=== PATIENT | female | born 1985 | race Caucasian/White ===

== ENCOUNTER → 2019-06-13 14:04 | Outpatient (BNVA) | payer OTHER, SELFPAY | PROVIDERS: PCP Family Medicine; Visit Provider Nurse Practitioner Family | DX: M25.572 Pain in left ankle and joints of left foot (principal) | CPT/HCPCS: 73610; 73630 ==

== ENCOUNTER → 2019-12-03 17:19 | Outpatient (BNVA) | payer OTHER, SELFPAY | PROVIDERS: PCP Family Medicine; Visit Provider Nurse Practitioner Family | DX: R05 Cough (principal) | CPT/HCPCS: 87635 ==

== ENCOUNTER 2019-12-07 02:27 | Emergency (ER) | payer OTHER, SELFPAY ==
[2019-12-07 02:42] VITALS: BP 147/91; PULSE 92; RESP 20; TEMP 37.7; O2SAT 94
--- NOTE | 2019-12-07 04:03 | XRR_ITS ---
PROCEDURE INFORMATION: Exam: XR Chest, 1 View Exam date and time: 12/07/2019 4:16 AM Age: 34 years old Clinical indication: Fever TECHNIQUE: Imaging protocol: XR of the chest Views: 1 view. COMPARISON: No relevant prior studies available. FINDINGS: Lungs: Airspace disease predominantly laterally in the right lung base not silhouetting the hemidiaphragm. Probable slightly patchy increased density in the medial aspect of the right posterior sulcus behind the liver, also. Left lung clear. Pleural space: No pleural fluid or pneumothorax. Heart/Mediastinum: Unremarkable. No cardiomegaly. Bones/joints: Unremarkable. XR/XR chest 1V portable [id number] IMPRESSION: Right basilar pneumonia.
--- NOTE | 2019-12-07 04:03 | CTR_ITS ---
PROCEDURE INFORMATION: Exam: CT Head Without Contrast Exam date and time: 12/07/2019 4:16 AM Age: 34 years old Clinical indication: Pain; Headache not specified TECHNIQUE: Imaging protocol: Computed tomography of the head without contrast. Radiation optimization: All CT scans at this facility use at least one of these dose optimization techniques: automated exposure control; mA and/or kV adjustment per patient size (includes targeted exams where dose is matched to clinical indication); or iterative reconstruction. COMPARISON: No relevant prior studies available. RADIATION DOSE METRICS: Total DLP (mGy-cm): 726.54 FINDINGS: Brain: Normal. No hemorrhage. Unremarkable white matter. No mass effect. Ventricles: Normal. No ventriculomegaly. Bones/joints: Unremarkable. No acute fracture. Sinuses: Visualized sinuses are unremarkable. No fluid levels. Mastoid air cells: Visualized mastoid air cells are well aerated. Soft tissues: Unremarkable. CT/CT head wo con* [id number] IMPRESSION: No acute intracranial abnormality. Radiation Dose CTDIVOL = (mGy): DLP = 726.54 (mGy-cm)
--- NOTE | 2019-12-07 04:09 | W.ED.HA ---
Documented by User: Lila Rebollar 12/07/19 04:57 HPI - Headache General: Chief Complaint: Headache Stated Complaint: FEVERF/HEADACHE Time Seen by Provider: 12/07/19 03:55 Source: patient Mode of arrival: ambulatory Limitations: no limitations History of Present Illness: HPI Narrative: Elizabeth is a 34-year-old female who comes in complaining of head pressure and fever intermittently for the past 5 days. She denies any neck pain or stiffness. Fevers been up to 102.7. She has had one episode of vomiting several days ago. She denies any rashes. She denies any photophobia or phonophobia. Denies any abdominal pain, cough, urinary symptoms or otherwise. She states her fever and pain respond to Tylenol Motrin but once they were off her symptoms returned. She not had any known ill contacts according to her. Associated symptoms: Reports fever(s); Deny chest pain, confusion, diaphoresis, lightheadedness, malaise, nausea, pre-syncope, rash, syncope or vomiting Review of Systems Const: Reports: fever(s); Denies: chills, body aches, fatigue, malaise or diaphoresis Eyes: Denies: change in vision, blurry vision, blind spots, photophobia, eye discharge or eye redness ENMT: Denies: throat pain, odynophagia, hoarseness, swelling of lips/tongue, oral sores, ear or mastoid pain, ear discharge, change in hearing or nasal discharge Card: Denies: chest pain, palpitations, irregular heart rhythm, edema, lightheadedness, syncope, pre-syncope, dyspnea on exertion or orthopnea Resp: Denies: dyspnea, productive cough, non-productive cough, wheezing, hemoptysis or chest congestion GI: Denies: abdominal pain, nausea, vomiting, hematemesis, coffee ground emesis, heartburn, diarrhea, constipation, GI cramping, hematochezia or melena : Denies: flank pain, dysuria, urinary frequency, urinary urgency or hematuria Musc: Denies: neck pain, back pain, extremity pain, extremity swelling, joint pain, joint swelling, joint redness, joint warmth or joint stiffness Skin/Breast: Denies: rash, pruritus, erythema, skin tenderness or jaundice Neuro: Reports: headache(s); Denies: numbness in extremities, weakness in extremities, sensory changes, lack of coordination, difficulty walking, dizziness, vertigo, confusion, Slurred speech present or seizure-like activity Jarrett/Lymph: Denies: easy bruising, easy bleeding, petechiae, purpura or enlarged lymph nodes All/Imm: Denies: urticaria, throat swelling, tongue swelling, facial swelling or acute wheezing PFSH ED PFSH: Family History Family/Other Cancer Lung and breast CAD (coronary artery disease) Diabetes Hypertension Stroke Social History Smoking and tobacco status: current every day smoker cigarettes Packs smoked per day: 0.5 Years cigarettes smoked: 15 Second hand smoke exposure: Yes Alcohol intake: never Lives independently: Yes Household members: spouse and children Marital status: service: No 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 Pets and animals: Yes History of recent travel: No Current gender identity: Female Female Reproductive History: Date of last menstrual period: 12/05/19 Physical Exam Const: COMMON NORMALS: no acute distress, patient oriented x3, no limitations, healthy appearing and well nourished GENERAL APPEARANCE: cooperative, well kempt and well developed HENMT: COMMON NORMALS: normocephalic, atraumatic, external ears normal, EAC's normal and Normal external nose present HEAD & SCALP: normal to inspection, normocephalic and atraumatic FACE & SINUS: normal facial exam and face symmetric NOSE: Normal external nose present and Normal nares present EXTERNAL EAR: Yes external ears normal EXTERNAL AUDITORY CANAL: EAC's normal MOUTH: Normal oral and palatal mucosa present, lip normal and tongue normal Eye: COMMON NORMALS: Equal, round and reactive pupils present and conjunctivae normal GENERAL EYE: appearance normal, both eyes and all related structures ALIGNMENT: Yes alignment normal PERIORBITAL: periorbital findings normal EYELID: eyelids normal CONJUNCTIVA: Yes conjunctivae normal SCLERA: sclerae normal PUPIL: Yes Equal, round and reactive pupils present Neck/C-Spine: COMMON NORMALS: full ROM, no lymphadenopathy, supple, no meningeal signs and no JVD GENERAL: Yes normal visual inspection and Yes trachea midline Chest: COMMONS NORMALS: normal inspection of the chest and normal palpation of entire chest wall Resp: COMMON NORMALS: normal respiratory effort, No retractions and No use of accessory muscles EFFORT & INSPECTION: Yes able to speak in complete sentences and Yes symmetric chest movement AUSCULTATION: no crackles, no rales, no rhonchi and no wheezes Cardio: COMMON NORMALS: no JVD, regular rate, regular rhythm, S1 normal heart sound present and S2 normal heart sound present RATE: regular rate RHYTHM: regular rhythm HEART SOUNDS: S1 normal heart sound present, S2 normal heart sound present, no click, no gallops, no murmurs, no rubs and abnormal split S2 GI: COMMON NORMALS: Soft to palpation and No hepatosplenomegaly present PALPATION: Yes Soft to palpation, No Tenderness to palpation present (GI), No Guarding due to palpation present (GI), No Rigid due to palpation, Yes No hepatosplenomegaly present, No Hernia present, No Palpable mass present and No Pulsatile mass present : COMMON NORMALS: Yes no CVA tenderness BLADDER/KIDNEY EXAM: Yes no CVA tenderness EXTERNAL FEMALE EXAM: No Hernia present Back/Pelvis: COMMON NORMALS: no CVA tenderness, thoracic and lumbar spine normal to inspection, no thoracic nor lumbar tenderness and thoraco-lumbar ROM normal Extremity: COMMON NORMALS: normal to inspection, full ROM, capillary refill normal, no joint enlargement, no clubbing, cyanosis or edema and no calf tenderness Neuro: COMMON NORMALS: patient oriented x3, CN's II-XII intact bilaterally, moves all extremities, no focal motor deficits and no sensory deficits noted MENINGEAL SIGNS: Yes no meningeal signs SPEECH: speech normal Psych: COMMON NORMALS: mental status grossly normal, Normal thought process present, cooperative, normal affect, speech normal and activity/motor behavior normal APPEARANCE: Yes well kempt SPEECH: Yes normal speech THOUGHT PROCESS: Normal thought process present Skin: COMMON NORMALS: no rashes or lesions noted, turgor normal, no jaundice, no petechiae and no mottling GENERAL SKIN EXAM: no rashes or lesions noted and turgor normal Course ED course: 0410 -risks and benefits were explained to the patient and she agrees to going ahead with LP to evaluate for meningitis. Vital Signs: Vital signs: Vital Signs Temperature 100.0 F H 12/07/19 08:53 Pulse Rate 101 H 12/07/19 08:53 Respiratory Rate 16 12/07/19 08:53 Blood Pressure 127/69 12/07/19 08:53 Pulse Oximetry 95 12/07/19 07:33 MDM - Headache Lab Data: Labs: Lab Results 12/07/19 12/07/19 12/07/19 Range/Units 04:57 04:57 04:57 WBC 12.4 H (4.0-10.0) 10^3/ uL RBC 4.22 (4.1-5.3) 10^6/u L Hgb 12.4 (11.5-15.3) g/dL Hct 38.9 (37.0-47.0) % MCV 92.2 (81-99) fL MCH 29.4 (28.0-34.0) pg MCHC 31.9 (30.0-36.0) g/dL RDW 13.1 (12.1-15.1) % Plt Count 281 (130-400) 10^3/c mm MPV 10.5 H (7.4-10.4) fL Neut % (Auto) 82.2 % Lymph % (Auto) 13.8 % [place] % (Auto) 3.2 % Eos % (Auto) 0.1 % Baso % (Auto) 0.3 % Neut # (Auto) 10.14 H (1.8-7.7) 10^3/u L Lymph # (Auto) 1.7 (0.8-4.8) 10^3/u L [place] # (Auto) 0.4 (0.2-0.9) 10^3/u L Eos # (Auto) 0.0 (0.0-0.8) 10^3/u L Baso # (Auto) 0.0 (0.0-0.1) 10^3/u L Nucleated RBC % (a uto) 0 % Nucleated RBCs # 0.0 /100WBC PT (10.5-13.3) SECO NDS INR (0.8-1.2) Sodium 134 L (136-145) mmol/L Potassium 3.3 L (3.5-5.1) mmol/L Chloride 95 L (98-107) mmol/L Carbon Dioxide 26 (22-29) mmol/L Anion Gap 16.3 (5-19) BUN 6 (6-20) mg/dL Creatinine 0.7 (0.5-0.9) mg/dL GFR Calculation 96.4 (90-130) mL/min Glucose 117 H (65-115) mg/dL Calculated Osmolal ity 275 L (285-295) mOsm/k g Lactic Acid (0.5-2.2) mmol/L Calcium 9.8 (8.5-10.5) mg/dL Magnesium 2.3 (1.7-2.3) mg/dL Total Bilirubin 0.4 (0.15-1.2) mg/dL AST 45 H (0-32) U/L ALT 38 H (0-33) U/L Alkaline Phosphata se 156 H (35-105) IU/L Total Protein 8.5 (6.6-8.7) g/dL Albumin 4.3 (3.5-5.2) g/dL Globulin 4.2 (1.3-4.6) g/dL HCG, Qual Negative (Negative) Urine Color (Yellow) Urine Appearance (CLEAR) Urine pH (5-7) Ur Specific Gravit y (1.005-1.030) Urine Protein (Negative) Urine Glucose (UA) (Normal) Urine Ketones (Negative) Urine Blood (Negative) Urine Nitrate (Negative) Urine Bilirubin (NEGATIVE) Urine Urobilinogen (Negative) mg/dL Ur Leukocyte Phylicia ase (Negative) Urine RBC (0-2) /hpf Urine WBC (0-5) /hpf Ur Squamous Epith Cells (0-5) Urine Bacteria (NONE) CSF Appearance (CLEAR) CSF Color (COLORLESS) CSF WBC (0-5) /uL CSF RBC (0-0) 10^3/uL CSF Mononuclear # Auto (50-90) 10^3/uL CSF Mononuclear WB Cs % (50-90) % CSF Polynuclear WB Cs # (0-10) 10^3/uL CSF Polynuclear WB Cs % (0-10) % CSF Glucose (40-70) mg/dL CSF Total Protein (15-45) mg/dL Influenza Type A A g (Negative) Influenza Type B A g (Negative) 12/07/19 12/07/19 12/07/19 Range/Units 05:01 05:11 05:35 WBC (4.0-10.0) 10^3/ uL RBC (4.1-5.3) 10^6/u L Hgb (11.5-15.3) g/dL Hct (37.0-47.0) % MCV (81-99) fL MCH (28.0-34.0) pg MCHC (30.0-36.0) g/dL RDW (12.1-15.1) % Plt Count (130-400) 10^3/c mm MPV (7.4-10.4) fL Neut % (Auto) % Lymph % (Auto) % [place] % (Auto) % Eos % (Auto) % Baso % (Auto) % Neut # (Auto) (1.8-7.7) 10^3/u L Lymph # (Auto) (0.8-4.8) 10^3/u L [place] # (Auto) (0.2-0.9) 10^3/u L Eos # (Auto) (0.0-0.8) 10^3/u L Baso # (Auto) (0.0-0.1) 10^3/u L Nucleated RBC % (a uto) % Nucleated RBCs # /100WBC PT 13.70 H (10.5-13.3) SECO NDS INR 1.02 (0.8-1.2) Sodium (136-145) mmol/L Potassium (3.5-5.1) mmol/L Chloride (98-107) mmol/L Carbon Dioxide (22-29) mmol/L Anion Gap (5-19) BUN (6-20) mg/dL Creatinine (0.5-0.9) mg/dL GFR Calculation (90-130) mL/min Glucose (65-115) mg/dL Calculated Osmolal ity (285-295) mOsm/k g Lactic Acid 0.9 (0.5-2.2) mmol/L Calcium (8.5-10.5) mg/dL Magnesium (1.7-2.3) mg/dL Total Bilirubin (0.15-1.2) mg/dL AST (0-32) U/L ALT (0-33) U/L Alkaline Phosphata se (35-105) IU/L Total Protein (6.6-8.7) g/dL Albumin (3.5-5.2) g/dL Globulin (1.3-4.6) g/dL HCG, Qual (Negative) Urine Color (Yellow) Urine Appearance (CLEAR) Urine pH (5-7) Ur Specific Gravit y (1.005-1.030) Urine Protein (Negative) Urine Glucose (UA) (Normal) Urine Ketones (Negative) Urine Blood (Negative) Urine Nitrate (Negative) Urine Bilirubin (NEGATIVE) Urine Urobilinogen (Negative) mg/dL Ur Leukocyte Phylicia ase (Negative) Urine RBC (0-2) /hpf Urine WBC (0-5) /hpf Ur Squamous Epith Cells (0-5) Urine Bacteria (NONE) CSF Appearance Clear (CLEAR) CSF Color Colorless (COLORLESS) CSF WBC 2 (0-5) /uL CSF RBC 0 (0-0) 10^3/uL CSF Mononuclear # Auto 0.002 L (50-90) 10^3/uL CSF Mononuclear WB Cs % 100 H (50-90) % CSF Polynuclear WB Cs # 0.000 (0-10) 10^3/uL CSF Polynuclear WB Cs % 0 (0-10) % CSF Glucose 76 H (40-70) mg/dL CSF Total Protein 24 (15-45) mg/dL Influenza Type A A g (Negative) Influenza Type B A g (Negative) 12/07/19 12/07/19 Range/Units 05:44 06:17 WBC (4.0-10.0) 10^3/ uL RBC (4.1-5.3) 10^6/u L Hgb (11.5-15.3) g/dL Hct (37.0-47.0) % MCV (81-99) fL MCH (28.0-34.0) pg MCHC (30.0-36.0) g/dL RDW (12.1-15.1) % Plt Count (130-400) 10^3/c mm MPV (7.4-10.4) fL Neut % (Auto) % Lymph % (Auto) % [place] % (Auto) % Eos % (Auto) % Baso % (Auto) % Neut # (Auto) (1.8-7.7) 10^3/u L Lymph # (Auto) (0.8-4.8) 10^3/u L [place] # (Auto) (0.2-0.9) 10^3/u L Eos # (Auto) (0.0-0.8) 10^3/u L Baso # (Auto) (0.0-0.1) 10^3/u L Nucleated RBC % (a uto) % Nucleated RBCs # /100WBC PT (10.5-13.3) SECO NDS INR (0.8-1.2) Sodium (136-145) mmol/L Potassium (3.5-5.1) mmol/L Chloride (98-107) mmol/L Carbon Dioxide (22-29) mmol/L Anion Gap (5-19) BUN (6-20) mg/dL Creatinine (0.5-0.9) mg/dL GFR Calculation (90-130) mL/min Glucose (65-115) mg/dL Calculated Osmolal ity (285-295) mOsm/k g Lactic Acid (0.5-2.2) mmol/L Calcium (8.5-10.5) mg/dL Magnesium (1.7-2.3) mg/dL Total Bilirubin (0.15-1.2) mg/dL AST (0-32) U/L ALT (0-33) U/L Alkaline Phosphata se (35-105) IU/L Total Protein (6.6-8.7) g/dL Albumin (3.5-5.2) g/dL Globulin (1.3-4.6) g/dL HCG, Qual (Negative) Urine Color Brown (Yellow) Urine Appearance Sl hazy (CLEAR) Urine pH 5 (5-7) Ur Specific Gravit y 1.020 (1.005-1.030) Urine Protein 3+ H (Negative) Urine Glucose (UA) Norm (Normal) Urine Ketones Negative (Negative) Urine Blood 3+ H (Negative) Urine Nitrate Negative (Negative) Urine Bilirubin Neg (NEGATIVE) Urine Urobilinogen 1 H (Negative) mg/dL Ur Leukocyte Phylicia ase Negative (Negative) Urine RBC Too numerous to c nt H (0-2) /hpf Urine WBC None (0-5) /hpf Ur Squamous Epith Cells None (0-5) Urine Bacteria Trace (NONE) CSF Appearance (CLEAR) CSF Color (COLORLESS) CSF WBC (0-5) /uL CSF RBC (0-0) 10^3/uL CSF Mononuclear # Auto (50-90) 10^3/uL CSF Mononuclear WB Cs % (50-90) % CSF Polynuclear WB Cs # (0-10) 10^3/uL CSF Polynuclear WB Cs % (0-10) % CSF Glucose (40-70) mg/dL CSF Total Protein (15-45) mg/dL Influenza Type A A g Negative (Negative) Influenza Type B A g Negative (Negative) Imaging Data^: CT Head: Radiologist's impression: [address] [address] [address] Scan Report Signed Patient: Elizabeth Gates Unit #: [id number] : 1985 Age/Sex: 34 / F ADM Date: 12/07/19 Loc: ER Room/Bed: Attending Dr: Ordering Provider/Ordering MD: Lila Rebollar DO Date of Service: 12/07/19 Procedure(s): CT head wo con* [id number] Accession Number(s): [id number] Report Number: [id number] PROCEDURE INFORMATION: Exam: CT Head Without Contrast Exam date and time: 12/07/2019 4:16 AM Age: 34 years old Clinical indication: Pain; Headache not specified TECHNIQUE: Imaging protocol: Computed tomography of the head without contrast. Radiation optimization: All CT scans at this facility use at least one of these dose optimization techniques: automated exposure control; mA and/or kV adjustment per patient size (includes targeted exams where dose is matched to clinical indication); or iterative reconstruction. COMPARISON: No relevant prior studies available. RADIATION DOSE METRICS: Total DLP (mGy-cm): 726.54 FINDINGS: Brain: Normal. No hemorrhage. Unremarkable white matter. No mass effect. Ventricles: Normal. No ventriculomegaly. Bones/joints: Unremarkable. No acute fracture. Sinuses: Visualized sinuses are unremarkable. No fluid levels. Mastoid air cells: Visualized mastoid air cells are well aerated. Soft tissues: Unremarkable. CT/CT head wo con* [id number] IMPRESSION: No acute intracranial abnormality. Radiation Dose CTDIVOL = (mGy): DLP = 726.54 (mGy-cm) Dictated By: Nathan Stokes MD Signed By: Nathan Stokes MD Signed Date/Time: 12/07/19 0454 DD/ 0453 CXR: My impression: Possible right lower lobe infiltrate. Discharge Plan Discharge Patient Disposition: Home, Self-Care Clinical Impression: COVID-19 virus test result unknown Pneumonia Qualifiers: Pneumonia type: due to unspecified organism Laterality: right Lung location: lower lobe of lung Qualified Code(s): J18.9 - Pneumonia, unspecified organism Headache Qualifiers: Headache type: unspecified Headache chronicity pattern: unspecified pattern Intractability: not intractable Qualified Code(s): R51 - Headache Condition: Stable Prescriptions: New doxycycline hyclate 100 mg tablet 100 mg PO BID 10 Days Qty: 20 RF: 0 No Action sertraline 100 mg tablet 100 mg PO QDAY RF: 0 Discharge Orders: Discharge Order (Routine); Ordered 12/07/19 Ordered By: Meron Linn Referrals: Soheila Vaca MD [Primary Care Provider] - Discharge Diet: Advance as tolerated Discharge Activity: Limit activity as instructed Patient Instructions: Pneumonia (ED) Activity Restrictions/Additional Instructions: Continue to use ibuprofen, up to 600 mg every 6 hours. You can also take acetaminophen, 1000 mg every 4 hours. Take the antibiotic as prescribed. Continue to self isolate until your the results of your cover test are known. Return to the emergency department if you have worsening symptoms including shortness of breath, vomiting, uncontrolled fever, confusion or altered mental status. Discharge Date/Time: 12/07/19 08:56 Coding Level of Care Code ED Manufacturing Job Titles for Chg Fwd Exam Comprehensive Documented by User: Meron Linn MD 12/07/19 20:37 HPI - Headache General: Chief Complaint: Headache Stated Complaint: FEVERF/HEADACHE Time Seen by Provider: 12/07/19 03:55 PFSH ED PFSH: Family History Family/Other Cancer Lung and breast CAD (coronary artery disease) Diabetes Hypertension Stroke Social History Smoking and tobacco status: current every day smoker cigarettes Packs smoked per day: 0.5 Years cigarettes smoked: 15 Second hand smoke exposure: Yes Alcohol intake: never Lives independently: Yes Household members: spouse and children Marital status: service: No 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 Wallace. She is here for fever and headaches. She has been sick all week and on Tuesday actually had a COVID test. She said she was told the results to be back but they have not come back yet. She had an LP done in the ED which only showed 2 white cells on her CSF analysis. Glucose was 76 and protein was 24. I am still waiting for the Gram stain. Chest x-ray showed a right basilar pneumonia. She had IV antibiotics ordered and will go home on antibiotics. She lists an allergy to amoxicillin which occurred as a baby and she does not know what the reaction was. She looks and feels well enough to go home. Dr. Vaca is her primary and will follow up. Vital Signs: Vital signs: Vital Signs Temperature 100.0 F H 12/07/19 08:53 Pulse Rate 101 H 12/07/19 08:53 Respiratory Rate 16 12/07/19 08:53 Blood Pressure 127/69 12/07/19 08:53 Pulse Oximetry 95 12/07/19 07:33 MDM - Headache Lab Data: Labs: Lab Results 12/07/19 12/07/19 12/07/19 Range/Units 04:57 04:57 04:57 WBC 12.4 H (4.0-10.0) 10^3/ uL RBC 4.22 (4.1-5.3) 10^6/u L Hgb 12.4 (11.5-15.3) g/dL Hct 38.9 (37.0-47.0) % MCV 92.2 (81-99) fL MCH 29.4 (28.0-34.0) pg MCHC 31.9 (30.0-36.0) g/dL RDW 13.1 (12.1-15.1) % Plt Count 281 (130-400) 10^3/c mm MPV 10.5 H (7.4-10.4) fL Neut % (Auto) 82.2 % Lymph % (Auto) 13.8 % [place] % (Auto) 3.2 % Eos % (Auto) 0.1 % Baso % (Auto) 0.3 % Neut # (Auto) 10.14 H (1.8-7.7) 10^3/u L Lymph # (Auto) 1.7 (0.8-4.8) 10^3/u L [place] # (Auto) 0.4 (0.2-0.9) 10^3/u L Eos # (Auto) 0.0 (0.0-0.8) 10^3/u L Baso # (Auto) 0.0 (0.0-0.1) 10^3/u L Nucleated RBC % (a uto) 0 % Nucleated RBCs # 0.0 /100WBC PT (10.5-13.3) SECO NDS INR (0.8-1.2) Sodium 134 L (136-145) mmol/L Potassium 3.3 L (3.5-5.1) mmol/L Chloride 95 L (98-107) mmol/L Carbon Dioxide 26 (22-29) mmol/L Anion Gap 16.3 (5-19) BUN 6 (6-20) mg/dL Creatinine 0.7 (0.5-0.9) mg/dL GFR Calculation 96.4 (90-130) mL/min Glucose 117 H (65-115) mg/dL Calculated Osmolal ity 275 L (285-295) mOsm/k g Lactic Acid (0.5-2.2) mmol/L Calcium 9.8 (8.5-10.5) mg/dL Magnesium 2.3 (1.7-2.3) mg/dL Total Bilirubin 0.4 (0.15-1.2) mg/dL AST 45 H (0-32) U/L ALT 38 H (0-33) U/L Alkaline Phosphata se 156 H (35-105) IU/L Total Protein 8.5 (6.6-8.7) g/dL Albumin 4.3 (3.5-5.2) g/dL Globulin 4.2 (1.3-4.6) g/dL HCG, Qual Negative (Negative) Urine Color (Yellow) Urine Appearance (CLEAR) Urine pH (5-7) Ur Specific Gravit y (1.005-1.030) Urine Protein (Negative) Urine Glucose (UA) (Normal) Urine Ketones (Negative) Urine Blood (Negative) Urine Nitrate (Negative) Urine Bilirubin (NEGATIVE) Urine Urobilinogen (Negative) mg/dL Ur Leukocyte Phylicia ase (Negative) Urine RBC (0-2) /hpf Urine WBC (0-5) /hpf Ur Squamous Epith Cells (0-5) Urine Bacteria (NONE) CSF Appearance (CLEAR) CSF Color (COLORLESS) CSF WBC (0-5) /uL CSF RBC (0-0) 10^3/uL CSF Mononuclear # Auto (50-90) 10^3/uL CSF Mononuclear WB Cs % (50-90) % CSF Polynuclear WB Cs # (0-10) 10^3/uL CSF Polynuclear WB Cs % (0-10) % CSF Glucose (40-70) mg/dL CSF Total Protein (15-45) mg/dL Influenza Type A A g (Negative) Influenza Type B A g (Negative) 12/07/19 12/07/19 12/07/19 Range/Units 05:01 05:11 05:35 WBC (4.0-10.0) 10^3/ uL RBC (4.1-5.3) 10^6/u L Hgb (11.5-15.3) g/dL Hct (37.0-47.0) % MCV (81-99) fL MCH (28.0-34.0) pg MCHC (30.0-36.0) g/dL RDW (12.1-15.1) % Plt Count (130-400) 10^3/c mm MPV (7.4-10.4) fL Neut % (Auto) % Lymph % (Auto) % [place] % (Auto) % Eos % (Auto) % Baso % (Auto) % Neut # (Auto) (1.8-7.7) 10^3/u L Lymph # (Auto) (0.8-4.8) 10^3/u L [place] # (Auto) (0.2-0.9) 10^3/u L Eos # (Auto) (0.0-0.8) 10^3/u L Baso # (Auto) (0.0-0.1) 10^3/u L Nucleated RBC % (a uto) % Nucleated RBCs # /100WBC PT 13.70 H (10.5-13.3) SECO NDS INR 1.02 (0.8-1.2) Sodium (136-145) mmol/L Potassium (3.5-5.1) mmol/L Chloride (98-107) mmol/L Carbon Dioxide (22-29) mmol/L Anion Gap (5-19) BUN (6-20) mg/dL Creatinine (0.5-0.9) mg/dL GFR Calculation (90-130) mL/min Glucose (65-115) mg/dL Calculated Osmolal ity (285-295) mOsm/k g Lactic Acid 0.9 (0.5-2.2) mmol/L Calcium (8.5-10.5) mg/dL Magnesium (1.7-2.3) mg/dL Total Bilirubin (0.15-1.2) mg/dL AST (0-32) U/L ALT (0-33) U/L Alkaline Phosphata se (35-105) IU/L Total Protein (6.6-8.7) g/dL Albumin (3.5-5.2) g/dL Globulin (1.3-4.6) g/dL HCG, Qual (Negative) Urine Color (Yellow) Urine Appearance (CLEAR) Urine pH (5-7) Ur Specific Gravit y (1.005-1.030) Urine Protein (Negative) Urine Glucose (UA) (Normal) Urine Ketones (Negative) Urine Blood (Negative) Urine Nitrate (Negative) Urine Bilirubin (NEGATIVE) Urine Urobilinogen (Negative) mg/dL Ur Leukocyte Phylicia ase (Negative) Urine RBC (0-2) /hpf Urine WBC (0-5) /hpf Ur Squamous Epith Cells (0-5) Urine Bacteria (NONE) CSF Appearance Clear (CLEAR) CSF Color Colorless (COLORLESS) CSF WBC 2 (0-5) /uL CSF RBC 0 (0-0) 10^3/uL CSF Mononuclear # Auto 0.002 L (50-90) 10^3/uL CSF Mononuclear WB Cs % 100 H (50-90) % CSF Polynuclear WB Cs # 0.000 (0-10) 10^3/uL CSF Polynuclear WB Cs % 0 (0-10) % CSF Glucose 76 H (40-70) mg/dL CSF Total Protein 24 (15-45) mg/dL Influenza Type A A g (Negative) Influenza Type B A g (Negative) 12/07/19 12/07/19 Range/Units 05:44 06:17 WBC (4.0-10.0) 10^3/ uL RBC (4.1-5.3) 10^6/u L Hgb (11.5-15.3) g/dL Hct (37.0-47.0) % MCV (81-99) fL MCH (28.0-34.0) pg MCHC (30.0-36.0) g/dL RDW (12.1-15.1) % Plt Count (130-400) 10^3/c mm MPV (7.4-10.4) fL Neut % (Auto) % Lymph % (Auto) % [place] % (Auto) % Eos % (Auto) % Baso % (Auto) % Neut # (Auto) (1.8-7.7) 10^3/u L Lymph # (Auto) (0.8-4.8) 10^3/u L [place] # (Auto) (0.2-0.9) 10^3/u L Eos # (Auto) (0.0-0.8) 10^3/u L Baso # (Auto) (0.0-0.1) 10^3/u L Nucleated RBC % (a uto) % Nucleated RBCs # /100WBC PT (10.5-13.3) SECO NDS INR (0.8-1.2) Sodium (136-145) mmol/L Potassium (3.5-5.1) mmol/L Chloride (98-107) mmol/L Carbon Dioxide (22-29) mmol/L Anion Gap (5-19) BUN (6-20) mg/dL Creatinine (0.5-0.9) mg/dL GFR Calculation (90-130) mL/min Glucose (65-115) mg/dL Calculated Osmolal ity (285-295) mOsm/k g Lactic Acid (0.5-2.2) mmol/L Calcium (8.5-10.5) mg/dL Magnesium (1.7-2.3) mg/dL Total Bilirubin (0.15-1.2) mg/dL AST (0-32) U/L ALT (0-33) U/L Alkaline Phosphata se (35-105) IU/L Total Protein (6.6-8.7) g/dL Albumin (3.5-5.2) g/dL Globulin (1.3-4.6) g/dL HCG, Qual (Negative) Urine Color Brown (Yellow) Urine Appearance Sl hazy (CLEAR) Urine pH 5 (5-7) Ur Specific Gravit y 1.020 (1.005-1.030) Urine Protein 3+ H (Negative) Urine Glucose (UA) Norm (Normal) Urine Ketones Negative (Negative) Urine Blood 3+ H (Negative) Urine Nitrate Negative (Negative) Urine Bilirubin Neg (NEGATIVE) Urine Urobilinogen 1 H (Negative) mg/dL Ur Leukocyte Phylicia ase Negative (Negative) Urine RBC Too numerous to c nt H (0-2) /hpf Urine WBC None (0-5) /hpf Ur Squamous Epith Cells None (0-5) Urine Bacteria Trace (NONE) CSF Appearance (CLEAR) CSF Color (COLORLESS) CSF WBC (0-5) /uL CSF RBC (0-0) 10^3/uL CSF Mononuclear # Auto (50-90) 10^3/uL CSF Mononuclear WB Cs % (50-90) % CSF Polynuclear WB Cs # (0-10) 10^3/uL CSF Polynuclear WB Cs % (0-10) % CSF Glucose (40-70) mg/dL CSF Total Protein (15-45) mg/dL Influenza Type A A g Negative (Negative) Influenza Type B A g Negative (Negative) Discharge Plan Discharge Patient Disposition: Home, Self-Care Clinical Impression: COVID-19 virus test result unknown Pneumonia Qualifiers: Pneumonia type: due to unspecified organism Laterality: right Lung location: lower lobe of lung Qualified Code(s): J18.9 - Pneumonia, unspecified organism Headache Qualifiers: Headache type: unspecified Headache chronicity pattern: unspecified pattern Intractability: not intractable Qualified Code(s): R51 - Headache Condition: Stable Prescriptions: New doxycycline hyclate 100 mg tablet 100 mg PO BID 10 Days Qty: 20 RF: 0 No Action sertraline 100 mg tablet 100 mg PO QDAY RF: 0 Discharge Orders: Discharge Order (Routine); Ordered 12/07/19 Ordered By: Meron Linn Referrals: Soheila Vaca MD [Primary Care Provider] - Discharge Diet: Advance as tolerated Discharge Activity: Limit activity as instructed Patient Instructions: Pneumonia (ED) Activity Restrictions/Additional Instructions: Continue to use ibuprofen, up to 600 mg every 6 hours. You can also take acetaminophen, 1000 mg every 4 hours. Take the antibiotic as prescribed. Continue to self isolate until your the results of your cover test are known. Return to the emergency department if you have worsening symptoms including shortness of breath, vomiting, uncontrolled fever, confusion or altered mental status. Discharge Date/Time: 12/07/19 08:56 Coding Level of Care Code ED [employer] for [employer] F[employer] Exam Comprehensive
[2019-12-07 04:39] VITALS: BP 127/83; PULSE 96; RESP 16; O2SAT 97
[2019-12-07 05:04] LABS: Basophils % 0.3 %; Eosinophils % 0.1 %; Hematocrit 38.9 % (37.0-47.0); Hemoglobin 12.4 g/dL (11.5-15.3); Lymphocytes # 1.7 10^3/uL (0.8-4.8); Lymphocytes % 13.8 %; Mean Corpuscular HGB Conc 31.9 g/dL (30.0-36.0); Mean Corpuscular Hemoglobin 29.4 pg (28.0-34.0); Mean Corpuscular Volume 92.2 fL (81-99); Mean Platelet Volume 10.5 fL (7.4-10.4); Monocytes # 0.4 10^3/uL (0.2-0.9); Monocytes % 3.2 %; Neutrophils # 10.14 10^3/uL (1.8-7.7); Neutrophils % 82.2 %; Nucleated Red Blood Cells % 0 %; Platelet Count 281 10^3/cmm (130-400); Red Blood Count 4.22 10^6/uL (4.1-5.3); Red Cell Distribution Width 13.1 % (12.1-15.1); White Blood Count 12.4 10^3/uL (4.0-10.0)
[2019-12-07 05:18] LABS: HCG, Serum Qual Negative (Negative)
[2019-12-07 05:20] LABS: Alanine Aminotransferase 38 U/L (0-33); Albumin Level 4.3 g/dL (3.5-5.2); Alkaline Phosphatase 156 IU/L (35-105); Anion Gap 16.3 (5-19); Aspartate Amino Transferase 45 U/L (0-32); Blood Urea Nitrogen 6 mg/dL (6-20); Calcium 9.8 mg/dL (8.5-10.5); Carbon Dioxide 26 mmol/L (22-29); Chloride 95 mmol/L (98-107); Globulin 4.2 g/dL (1.3-4.6); Glomerular Filtration Rate 96.4 mL/min (90-130); Glucose 117 mg/dL (65-115); Magnesium 2.3 mg/dL (1.7-2.3); Osmolality Calculated 275 mOsm/kg (285-295); Potassium 3.3 mmol/L (3.5-5.1); Sodium 134 mmol/L (136-145); Total Bilirubin 0.4 mg/dL (0.15-1.2); Total Protein 8.5 g/dL (6.6-8.7)
[2019-12-07 05:24] LABS: Lactic Sepsis W/Reflex 0.9 mmol/L (0.5-2.2)
[2019-12-07 05:42] VITALS: BP 152/90; RESP 16; O2SAT 94
[2019-12-07 05:43] LABS: INR 1.02 (0.8-1.2)
[2019-12-07 06:00] VITALS: BP 135/85; PULSE 99; RESP 16; O2SAT 99
[2019-12-07] MEDS: sodium chloride 0.9% 1,000 ML 100 ML IV (06:14)
[2019-12-07 06:17] LABS: CSF Mononuclear # 0.002 10^3/uL (50-90); Mononuclear WBC CSF % 100 % (50-90); Polynuclear WBC CSF % 0 % (0-10); Red Blood Cell CSF 0 10^3/uL (0-0); White Blood Cell CSF 2 /uL (0-5)
[2019-12-07 06:23] LABS: Glucose CSF 76 mg/dL (40-70); Total Protein CSF 24 mg/dL (15-45)
[2019-12-07 06:27] LABS: Appearance CSF CLEAR (CLEAR); Color CSF COLORLESS (COLORLESS)
[2019-12-07 06:31] LABS: Influenza A by IFA Negative (Negative); Influenza B by IFA Negative (Negative)
[2019-12-07 06:57] LABS: Urine Appearance SL Hazy (CLEAR); Urine Color Brown (Yellow); pH Urine 5 (5-7)
[2019-12-07 06:58] LABS: Add Urine Culture? Yes; Bacteria Urine TRACE; Bilirubin Urine Neg (NEGATIVE); Blood Urine 3+ (Negative); Glucose Urine UA Norm (Normal); Ketones Urine Negative (Negative); Leukocyte Esterase Urine Negative (Negative); Nitrate Urine Negative (Negative); Protein Urine 3+ (Negative); RBC Urine TOO NUMEROUS TO CNT /hpf (0-2); Urobilinogen Urine 1 mg/dL (Negative)
--- NOTE | 2019-12-07 07:07 | PC.NURSE ---
CHANGE OF SHIFT REPORT GIVEN TO FARZANA CAMPOS.
[2019-12-07] MEDS: cefTRIAXone 1,000 MG in sodium chloride 0.9% (plus) 50 ML 100 MG IV (07:24)
[2019-12-07] MEDS: azithromycin 500 MG in sodium chloride 0.9% 250 ML 250 MG IV (07:24)
[2019-12-07 07:33] VITALS: BP 140/82; PULSE 107; RESP 18; TEMP 39.5; O2SAT 95
--- NOTE | 2019-12-07 07:34 | PC.NURSE ---
Received report assumed care. No changes noted. Fluids infusing. Started Rx per written order.
[2019-12-07] MEDS: acetaminophen 500 mg Tablet 1000 MG PO (07:39)
--- NOTE | 2019-12-07 08:13 | PC.NURSE ---
Fever down to 101.1 from 103.1. States she feels better
[2019-12-07 08:53] VITALS: BP 127/69; PULSE 101; RESP 16; TEMP 37.8
[2020-02-13 15:40] LABS: Lactate CSF 18.5 mmol/L
== END 2019-12-07 08:56 | disposition home or self-care (01) ==
PROVIDERS: Emergency Medicine; Emergency Provider Emergency Medicine; PCP Family Medicine
DX: J18.9 Pneumonia, unspecified organism (principal); R51 Headache; F17.210 Nicotine dependence, cigarettes, uncomplicated
CPT/HCPCS: 12345; 70450; 71045; 80053; 81001; 82945; 83605; 83735; 84157; 84703; 85025; 85610; 87070; 87075; 87086; 87205; 87804; 89050; 96365; 96367; 99284; J0456; J0696; J7030; J7050

== ENCOUNTER → 2020-01-08 13:18 | Outpatient (BNVA) | payer OTHER, SELFPAY | PROVIDERS: PCP Family Medicine; Referring Provider Family Medicine; Visit Provider Specialist | DX: G56.03 Carpal tunnel syndrome, bilateral upper limbs (principal) | CPT/HCPCS: 95910 ==

== ENCOUNTER → 2020-02-12 13:08 | Outpatient (BNVA) | payer OTHER, SELFPAY | PROVIDERS: PCP Nurse Practitioner Family; Visit Provider Orthopaedic Surgery | DX: Z20.828 Contact with and (suspected) exposure to other viral communicable diseases (principal) | CPT/HCPCS: 87635 ==

== ENCOUNTER 2020-02-14 13:59 | Day surgery (SDC) | payer OTHER, SELFPAY ==
[2020-02-13 10:40] VITALS: BMI 35.4
[2020-02-14 14:17] VITALS: BP 144/89; PULSE 95; RESP 18; TEMP 36.6; O2SAT 95
[2020-02-14 14:35] LABS: OR HCG Qualitative Urine Negative (Negative)
[2020-02-14] MEDS: sodium chloride 0.9% 1,000 ML 30 ML IV (14:43)
--- NOTE | 2020-02-14 14:49 | P.ANESASSM_ITS ---
Pre-Anesthetic Assessment Pre-Anesthetic Assessment: Height/Weight: Height 1.6 m Weight 90.718 kg Temp Pulse Resp BP Pulse Ox 97.8 F 95 18 144/89 95 02/14/20 14:17 02/14/20 14:17 02/14/20 14:17 02/14/20 14:17 02/14/20 14:17 Preop Diagnosis: Right carpal tunnel syndrome Proposed Procedure: Operation Date: 02/14/20 14:30 Proposed Procedures p Carpal Tunnel Release 23559 G56.03(Right) - Joss Whitt MD Familial anesthetic complications: None Was Beta Cristel taken within 24 hour s: N/A Last intake: Intake Last Liquid Date 02/14/20 Last Liquid Time 08:00 Last Solid Date 02/13/20 Last Solid Time 23:30 Social: Social History: No tobacco Exam: Pre-Anes Outpt Exam: alert, oriented x 3, clear to auscultation bilaterally and regular rate & rhythm Airway: Cervical ROM: WNL MP: 2 Dentition: Full Neuropsych: Neuropsych: Depression and Neuropathy Anesthetic Plan: ASA status: 1 Anesthesia: MAC and Regional (specify below) ([place] block) Risk of > 500 ml blood loss (7ml/kg in children): No Meds/Allergies Current Medications: Current Medications Generic Name Dose Route Start Last Admin Trade Name Freq PRN Reason Stop Dose Admin Sodium Chloride 1,000 mls @ 30 ml s/hr 02/14/20 14:00 02/14/20 14:43 Sodium Chloride 0.9% IV 02/15/20 13:59 30 mls/hr .Q24H STEVEN Administration PFSH Anesthesia PFSH: Family History Family/Other Cancer Lung and breast CAD (coronary artery disease) Diabetes Hypertension Stroke Social History Smoking and tobacco status: current every day smoker cigarettes Packs smoked per day: 0.5 Years cigarettes smoked: 15 Second hand smoke exposure: Yes Alcohol intake: never Lives independently: Yes Household members: spouse and children Marital status: service: No 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
--- NOTE | 2020-02-14 15:23 | W.PM.OPSUD ---
Surgery/Procedure H&P Update DATE OF PROCEDURE: February 14, 2020 DATE H&P PERFORMED: 01/22/20 PREOP DIAGNOSIS: Right carpal tunnel syndrome PLANNED PROCEDURE: Operation Date: 02/14/20 14:30 Proposed Procedures p Carpal Tunnel Release 72114 G56.03(Right) - Joss Whitt MD
--- NOTE | 2020-02-14 16:16 | P.OP_ITS ---
Operative Report Date of procedure: February 14, 2020 Pre-op Diagnosis: Right carpal tunnel syndrome Post-op diagnosis: same Post-op Findings: Same Procedure Done: Right carpal tunnel release Pathology: none sent Surgeon: Joss Whitt Anesthesia: Nerve Block ([place] block) Estimated blood loss (mL): 5 Tourniquet time (min): 21 Findings: No masses or space-occupying lesions were seen within the carpal tunnel Condition: stable Disposition: same day Procedure: Patient was taken to the operating room and anesthesia provided by the anesthesia service. She was prepped and draped with the arm exposed. A timeout was performed. A 3 cm long incision was made in line with the fourth ray from the distal edge of the carpal tunnel extending proximally. The subcutaneous fat and palmar fascia was divided with a scalpel blade. Under loupe magnification the ulnar neurovascular bundle was identified distally. A hemostat could be passed under the transverse carpal ligament allowing the distal 25% to be divided. A slotted guide was then passed beneath the transverse carpal ligament and the middle 50% divided. Blunt scissors were then passed over the guide freeing the proximal ligament. The tourniquet was deflated. Hemostasis provided with electrocautery. Wound edges were infiltrated with 10 cc of a half percent Marcaine solution. Skin edges were reapproximated with 3-0 Prolene. Sterile dressings were applied. The patient was taken to the recovery room in stable condition
[2020-02-14 16:22] VITALS: BP 151/85; PULSE 67; RESP 17; TEMP 36.2; O2SAT 96
--- NOTE | 2020-02-14 16:25 | ANE.PACU2 ---
Inpatient post-anesthesia follow up: Airway intact: Yes Vital signs: Temperature 97.1 F Pulse Rate 67 Respiratory Rate 17 Blood Pressure 151/85 Pulse Oximetry 96 Oxygen Delivery Me thod Room Air Oxygen Flow Rate Fraction of Inspir ed Oxygen Hydration adequate: Yes Nausea and vomiting: No Pain level: 1 Mental status: Baseline
== END 2020-02-14 16:52 | disposition home or self-care (01) ==
PROVIDERS: Visit Provider Orthopaedic Surgery
PROC: (CPT 64721; principal; 2020-02-14 14:30)
DX: G56.01 Carpal tunnel syndrome, right upper limb (principal); F32.9 Major depressive disorder, single episode, unspecified; F17.210 Nicotine dependence, cigarettes, uncomplicated
CPT/HCPCS: 64721; 12345; 81025; 84703; J0690; J2250; J2704; J3490; J7030

== ENCOUNTER → 2020-03-03 14:46 | Outpatient (BNVA) | payer OTHER, SELFPAY | PROVIDERS: Visit Provider Orthopaedic Surgery | DX: Z11.59 Encounter for screening for other viral diseases (principal); Z20.828 Contact with and (suspected) exposure to other viral communicable diseases | CPT/HCPCS: 87635 ==

== ENCOUNTER 2020-03-06 06:51 | Day surgery (SDC) | payer OTHER, SELFPAY ==
[2020-03-05 14:36] VITALS: BMI 35.4
[2020-03-06 07:08] VITALS: BP 136/88; PULSE 85; RESP 18; TEMP 36.2; O2SAT 96
[2020-03-06 07:21] LABS: OR HCG Qualitative Urine Negative (Negative)
[2020-03-06] MEDS: sodium chloride 0.9% 1,000 ML 30 ML IV (07:29)
--- NOTE | 2020-03-06 07:53 | P.ANESASSM_ITS ---
Pre-Anesthetic Assessment Pre-Anesthetic Assessment: Height/Weight: Height 1.6 m Weight 90.718 kg Temp Pulse Resp BP Pulse Ox 97.2 F L 85 18 136/88 96 03/06/20 07:08 03/06/20 07:08 03/06/20 07:08 03/06/20 07:08 03/06/20 07:08 Preop Diagnosis: Left carpal tunnel syndrome Proposed Procedure: Operation Date: 03/06/20 09:45 Proposed Procedures p Left Carpal Tunnel Release [id number] G56.02(Left) - Joss Whitt MD Familial anesthetic complications: None Was Beta Cristel taken within 24 h ours: N/A Last intake: Intake Last Liquid Date 03/05/20 Last Liquid Time 19:00 Last Solid Date 03/05/20 Last Solid Time 19:00 Social: Social History: No alcohol Exam: Pre-Anes Outpt Exam: alert, oriented x 3, clear to auscultation bilaterally and regular rate & rhythm Airway: Cervical ROM: WNL MP: 2 Dentition: Full Neuropsych: Neuropsych: Depression Anesthetic Plan: ASA status: 1 Anesthesia: MAC and Regional (specify below) Risk of > 500 ml blood loss (7ml/kg in children): No Meds/Allergies Current Medications: Current Medications Generic Name Dose Route Start Last Admin Trade Name Freq PRN Reason Stop Dose Admin Sodium Chloride 1,000 mls @ 30 ml s/hr 03/06/20 07:00 03/06/20 07:29 Sodium Chloride 0.9% IV 03/07/20 06:59 30 mls/hr .Q24H STEVEN Administration PFSH Anesthesia PFSH: Family History Family/Other Cancer Lung and breast CAD (coronary artery disease) Diabetes Hypertension Stroke Social History Smoking and tobacco status: current every day smoker cigarettes Packs smoked per day: 0.5 Years cigarettes smoked: 15 Second hand smoke exposure: Yes Alcohol intake: never Lives independently: Yes Household members: spouse and children Marital status: service: No 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
--- NOTE | 2020-03-06 10:28 | W.PM.OPSUD ---
Surgery/Procedure H&P Update DATE OF PROCEDURE: March 06, 2020 DATE H&P PERFORMED: 02/27/20 PREOP DIAGNOSIS: Left carpal tunnel syndrome PLANNED PROCEDURE: Operation Date: 03/06/20 09:45 Proposed Procedures p Left Carpal Tunnel Release [id number] G56.02(Left) - Joss Whitt MD
--- NOTE | 2020-03-06 11:12 | P.OP_ITS ---
Operative Report Date of procedure: March 06, 2020 Pre-op Diagnosis: Left carpal tunnel syndrome Post-op diagnosis: same Post-op Findings: Same Procedure Done: Left carpal tunnel release Pathology: none sent Anesthesia: Nerve Block ([place] block) Estimated blood loss (mL): 5 Tourniquet time (min): 20 Findings: No masses or space-occupying lesions were seen within the carpal tunnel Condition: stable Disposition: PACU Procedure: Patient was taken to the operating room and anesthesia provided by the anesthesia service. She was prepped and draped with the arm exposed. A timeout was performed. A 3 cm long incision was made in line with the fourth ray from the distal edge of the carpal tunnel extending proximally. The subcutaneous fat and palmar fascia was divided with a scalpel blade. Under loupe magnification the ulnar neurovascular bundle was identified distally. A hemostat could be passed under the transverse carpal ligament allowing the distal 25% to be divided. A slotted guide was then passed beneath the transverse carpal ligament and the middle 50% divided. Blunt scissors were then passed over the guide freeing the proximal ligament. The tourniquet was deflated. Hemostasis provided with electrocautery. Wound edges were infiltrated with 10 cc of a half percent Marcaine solution. Skin edges were reapproximated with 3-0 Prolene. Sterile dressings were applied. The patient was taken to the recovery room in stable condition
[2020-03-06 11:13] VITALS: BP 167/89; PULSE 78; RESP 20; TEMP 36.4; O2SAT 94
[2020-03-06 11:40] VITALS: BP 161/87; PULSE 59; RESP 18; O2SAT 98
--- NOTE | 2020-03-06 11:56 | ANE.PACU2 ---
Inpatient post-anesthesia follow up: Airway intact: Yes Vital signs: Temperature 97.5 F Pulse Rate 78 Respiratory Rate 20 Blood Pressure 167/89 Pulse Oximetry 94 Oxygen Delivery Me thod Room Air Oxygen Flow Rate Fraction of Inspir ed Oxygen Hydration adequate: Yes Nausea and vomiting: No Pain level: 1 Mental status: Baseline
== END 2020-03-06 12:00 | disposition home or self-care (01) ==
PROVIDERS: Visit Provider Orthopaedic Surgery
PROC: (CPT 64721; principal; 2020-03-06 09:35)
DX: G56.02 Carpal tunnel syndrome, left upper limb (principal); F17.210 Nicotine dependence, cigarettes, uncomplicated
CPT/HCPCS: 64721; 12345; 81025; 84703; J2250; J2704; J3010; J3490; J7030

== ENCOUNTER → 2020-07-29 11:09 | Outpatient (BNVA) | payer OTHER, SELFPAY | PROVIDERS: Visit Provider Nurse Practitioner Family | DX: M25.551 Pain in right hip (principal) | CPT/HCPCS: 73502 ==

== ENCOUNTER → 2021-12-22 09:40 | Outpatient (BNVA) | payer OTHER, SELFPAY | PROVIDERS: Referring Provider Nurse Practitioner Family; Visit Provider Surgery | DX: K21.9 Gastro-esophageal reflux disease without esophagitis (principal) | CPT/HCPCS: 99203 ==

== ENCOUNTER 2022-01-07 20:00 | Outpatient (CLI) | payer OTHER, SELFPAY | END 2022-01-07 20:01 | disposition home or self-care (01) | LOC: SLEEP 01-08 06:44 | PROVIDERS: Visit Provider Nurse Practitioner Family | DX: G47.10 Hypersomnia, unspecified (principal); R06.83 Snoring; R53.83 Other fatigue; G47.33 Obstructive sleep apnea (adult) (pediatric) | CPT/HCPCS: 95810 ==

== ENCOUNTER 2022-01-27 06:34 | Day surgery (SDC) | payer OTHER, SELFPAY ==
[2022-01-22 09:29] VITALS: BMI 35.4
[2022-01-27 07:04] VITALS: BP 130/99; PULSE 77; RESP 18; TEMP 36.6; O2SAT 96
[2022-01-27] MEDS: sodium chloride 0.9% 1,000 ML 30 ML IV (07:12)
[2022-01-27 07:17] LABS: OR HCG Qualitative Urine Negative (Negative)
--- NOTE | 2022-01-27 07:31 | PM.HP ---
Providers/Chief Complaint Primary Care Provider: Johnna Pace Chief Complaint: Abdominal pain History of Present Illness Elizabeth Gates is a 36 year old female here for EGD here for EGD Medications/Allergies Home Medications Medication Instructions Recorded Confirmed Last Taken Type azelastine 137 mcg-fluticasone 50 1 spray intranasal BID #1 ea 07/06/21 01/27/22 01/26/22 Rx mcg spray,susp-NaCl 0.9% spray nasal esomeprazole magnesium 20 mg 20 mg PO DAILY 07/06/21 01/27/22 01/25/22 History capsule,delayed release (Nexium 24HR) cholecalciferol (vitamin D3) 125 125 mcg PO ONCE 12/22/21 01/27/22 01/26/22 History mcg (5,000 unit) capsule probiotic 1 tab PO DAILY 12/22/21 01/27/22 01/26/22 History fluoxetine 20 mg capsule 20 mg PO DAILY 01/22/22 01/27/22 01/26/22 History Allergies Allergy/AdvReac Type Severity Reaction Status Date / Time amoxicillin Allergy Mild rash Verified 01/27/22 07:03 PFSH Acute PFSH: Medical History (Updated 01/27/22 @ 07:31 by Eloy Mccloud DO) Depression Gastroesophageal reflux disease Hx of LEEP (loop electrosurgical excision procedure) of cervix complicating (~2017) No pertinent past medical history Surgical History History of bilateral carpal tunnel release Family History Family/Other Cancer Lung and breast CAD (coronary artery disease) Diabetes Hypertension Stroke Social History Smoking and tobacco status: current every day smoker cigarettes Packs smoked per day: 0.5 Years cigarettes smoked: 15 Second hand smoke exposure: Yes Alcohol intake: never Lives independently: Yes Household members: spouse and children Marital status: service: No 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
--- NOTE | 2022-01-27 07:45 | ANES.PREANE2 ---
Pre-Anesthetic Assessment Height/Weight: Height 1.6 m Weight 90.718 kg Temp Pulse Resp BP Pulse Ox O2 Del Method 97.8 F 77 18 130/99 96 01/27/22 07:04 01/27/22 07:04 01/27/22 07:04 01/27/22 07:04 01/27/22 07:04 01/27/22 07:04 Preop Diagnosis: Left carpal tunnel syndrome Operation Date: 01/27/22 08:15 Proposed Procedures p EGD 29005,K21.9(Not Applicable) - Eloy Mccloud DO Familial anesthetic complications: None Last intake: Intake Last Liquid Date 01/27/22 Last Liquid Time 05:00 Last Solid Date 01/26/22 Last Solid Time 19:00 Social Tobacco and No alcohol Exam alert, oriented x 3, clear to auscultation bilaterally and regular rate & rhythm Airway Mallampati: Class II Dentition: full GI Gastroesophageal Reflux Disease Metabolic Morbid Obesity Anesthetic Plan ASA status: 2 Anesthesia: MAC Risk of > 500 ml blood loss (7ml/kg in children): No Medications/Allergies Home Medications Medication Instructions Recorded Confirmed Last Taken Type azelastine 137 mcg-fluticasone 50 1 spray intranasal BID #1 ea 07/06/21 01/27/22 01/26/22 Rx mcg spray,susp-NaCl 0.9% spray nasal esomeprazole magnesium 20 mg 20 mg PO DAILY 07/06/21 01/27/22 01/25/22 History capsule,delayed release (Nexium 24HR) cholecalciferol (vitamin D3) 125 125 mcg PO ONCE 12/22/21 01/27/22 01/26/22 History mcg (5,000 unit) capsule probiotic 1 tab PO DAILY 12/22/21 01/27/22 01/26/22 History fluoxetine 20 mg capsule 20 mg PO DAILY 01/22/22 01/27/22 01/26/22 History Allergies Allergy/AdvReac Type Severity Reaction Status Date / Time amoxicillin Allergy Mild rash Verified 01/27/22 07:03 Current Medications Generic Name Dose Route Start Last Admin Trade Name Freq PRN Reason Stop Dose Admin Sodium Chloride 1,000 mls @ 30 mls/hr 01/27/22 07:00 01/27/22 07:12 Sodium Chloride 0.9% IV 01/28/22 06:59 30 mls/hr .Q24H STEVEN Administration PFSH Anesthesia Medical History (Updated 01/27/22 @ 07:31 by Eloy Mccloud DO) Depression Gastroesophageal reflux disease Hx of LEEP (loop electrosurgical excision procedure) of cervix complicating (~2017) No pertinent past medical history Surgical History History of bilateral carpal tunnel release Family History Family/Other Cancer Lung and breast CAD (coronary artery disease) Diabetes Hypertension Stroke Social History Smoking and tobacco status: current every day smoker cigarettes Packs smoked per day: 0.5 Years cigarettes smoked: 15 Second hand smoke exposure: Yes Alcohol intake: never Lives independently: Yes Household members: spouse and children Marital status: service: No 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
--- NOTE | 2022-01-27 08:58 | XR_ITS ---
WS: [id number] Portable AP upright chest, 01/27/2022 Clinical Data: emesis during procedure Comparison: None. Findings: No nodules, masses or effusions are seen. The heart is normal. The pulmonary vascularity is not increased. No pneumonia or pneumothorax is seen. XR/XR chest 1V portable [id number] Impression: Negative chest.
[2022-01-27 09:00] VITALS: BP 137/73; PULSE 101; RESP 16; TEMP 36.6; O2SAT 94
[2022-01-27 09:10] VITALS: BP 127/75; PULSE 85; RESP 16; O2SAT 93
[2022-01-27 09:24] VITALS: BP 144/85; PULSE 79; RESP 16; O2SAT 98
--- NOTE | 2022-01-28 09:05 | ANE.PACU2 ---
Inpatient post-anesthesia follow up: Airway intact: Yes Vital signs: Temperature 98 F Pulse Rate 79 Respiratory Rate 16 Blood Pressure 144/85 Pulse Oximetry 98 Oxygen Delivery Me thod Room Air Oxygen Flow Rate Fraction of Inspir ed Oxygen Hydration adequate: Yes Nausea and vomiting: No Pain level: 1 Mental status: Baseline
== END 2022-01-27 09:30 | disposition home or self-care (01) ==
PROVIDERS: Anesthesiology; PCP Nurse Practitioner Family; Visit Provider Surgery
PROC: 0DJ08ZZ Inspection of Upper Intestinal Tract, Via Natural or Artificial Opening Endoscopic (ICD-10-PCS; CPT 43235; principal; 2022-01-27 08:15)
DX: K29.50 Unspecified chronic gastritis without bleeding (principal); K44.9 Diaphragmatic hernia without obstruction or gangrene; K21.9 Gastro-esophageal reflux disease without esophagitis; E66.01 Morbid (severe) obesity due to excess calories; Z68.35 Body mass index [BMI] 35.0-35.9, adult; F17.210 Nicotine dependence, cigarettes, uncomplicated; Z88.0 Allergy status to penicillin
CPT/HCPCS: 43239; 71045; 81025; 84703; 88305; 88342; J2704; J7030

== ENCOUNTER → 2022-02-09 09:59 | Outpatient (BNVA) | payer OTHER, SELFPAY | PROVIDERS: PCP Nurse Practitioner Family; Visit Provider Surgery | DX: K29.70 Gastritis, unspecified, without bleeding (principal) | CPT/HCPCS: 99212 ==

== ENCOUNTER 2022-02-15 20:00 | Outpatient (CLI) | payer OTHER, SELFPAY | END 2022-02-15 20:01 | disposition home or self-care (01) | LOC: SLEEP 02-16 08:05 | PROVIDERS: PCP Nurse Practitioner Family; Visit Provider Nurse Practitioner Family | DX: G47.33 Obstructive sleep apnea (adult) (pediatric) (principal) | CPT/HCPCS: 95811 ==

== ENCOUNTER → 2024-02-01 12:22 | Outpatient (BNVA) | payer OTHER, SELFPAY | PROVIDERS: PCP Nurse Practitioner Family; Visit Provider Nurse Practitioner | DX: J02.9 Acute pharyngitis, unspecified (principal) | CPT/HCPCS: 87880 ==

== ENCOUNTER → 2024-04-25 09:20 | Outpatient (BNVA) | payer OTHER, SELFPAY | PROVIDERS: PCP Nurse Practitioner Family; Visit Provider Emergency Medicine | DX: S61.442A Puncture wound with foreign body of left hand, initial encounter (principal); X58.XXXA Exposure to other specified factors, initial encounter | CPT/HCPCS: 73130 ==